=== PATIENT | female | born 1940 | race Caucasian/White ===

== ENCOUNTER 2018-11-23 14:25 | Emergency (ER) | payer OTHER ==
[~2018-11-23] VITALS: Ht 152.4 cm; Wt 104.5 kg
[2018-11-23] MEDS ORDERED: THYROID MED PO (14:31)
[2018-11-23] MEDS ORDERED: ASPI81 PO (14:31)
[2018-11-23] MEDS ORDERED: HTN MED PO (14:31)
[2018-11-23 17:18] VITALS: BP 124/72
== END 2018-11-23 17:20 | disposition home or self-care (01) ==
LOC: EMS 14:26
DX: J18.9 Pneumonia, unspecified organism (principal); I10 Essential (primary) hypertension

== ENCOUNTER 2019-10-04 09:52 | Emergency (ER) | payer OTHER ==
[~2019-10-04] VITALS: Ht 152.4 cm; Wt 78.0 kg
[~2019-10-04 09:52] MED LIST: ASPI81 PO; HTN MED PO; THYROID MED PO
[2019-10-04] MEDS ORDERED: LISI-662 PO (10:13)
[2019-10-04] MEDS ORDERED: ASPI-1182 PO (10:13)
[2019-10-04] MEDS ORDERED: LEVO88TA4 PO (10:13)
[2019-10-04] MEDS ORDERED: LIDOCAINE 5% TRANSDERMAL PATCH TD ONE (13:15)
[2019-10-04 14:03] VITALS: BP 139/81
== END 2019-10-04 14:24 | disposition home or self-care (01) ==
LOC: EMS 09:53
DX: M54.5 Low back pain (principal); R60.9 Edema, unspecified; E03.9 Hypothyroidism, unspecified; I10 Essential (primary) hypertension; Z79.899 Other long term (current) drug therapy

== ENCOUNTER 2023-10-20 14:24 | Emergency (ER) | payer OTHER ==
[~2023-10-20] VITALS: Ht 157.5 cm; Wt 97.7 kg
[~2023-10-20 14:24] MED LIST changes: +ASPI-1444 PO; -ASPI81 PO; -HTN MED PO; +LEVO88TA4 PO; +LISI-894 PO; -THYROID MED PO
[2023-10-20 14:27] VITALS: TEMP 98
[2023-10-20] MEDS ORDERED: DICL1PAT7 TD (14:41)
[2023-10-20] MEDS ORDERED: ATOR10TA69 PO (14:41)
[2023-10-20] MEDS ORDERED: LOSA-382 PO (14:41)
[2023-10-20] MEDS ORDERED: LEVO137T2 PO (14:41)
[2023-10-20] MEDS ORDERED: HYDROCODONE/ACETAMINOPHEN 5-325 MG TABLET PO ONE (15:45)
[2023-10-20 16:28] LABS: COVID AG,FIA SOURCE NASAL SWAB
[2023-10-20 16:28] LABS: BASOPHILS % (AUTO) 0.9 % (0.0-2.0); EOSINOPHILS % (AUTO) 4.1 % (1.0-6.0); HEMATOCRIT 36.1 % (36-46); LYMPHOCYTES # (AUTO) 2.4 K/uL (1.0-4.8); LYMPHOCYTES % (AUTO) 35.1 % (22.0-44.0); MEAN CORPUSCULAR HEMOGLOBIN 30.8 pg (26.0-34.0); MEAN CORPUSCULAR HGB CONC 33.2 G/dL (31.0-37.0); MEAN CORPUSCULAR VOLUME 93 fL (80-100); MONOCYTES # (AUTO) 0.6 K/uL (0.1-1.0); MONOCYTES % (AUTO) 8.6 % (2.0-9.0); NEUTROPHILS # (AUTO) 3.6 K/uL (1.8-7.7); NEUTROPHILS % (AUTO) 51.3 % (40.0-70.0); PLATELET COUNT (AUTO) 289 K/uL (150-450); RED BLOOD CELL COUNT(AUTO) 3.89 MIL/uL (4.00-5.20); RED CELL DISTRIBUTION WIDTH 13.7 % (11.5-14.5)
[2023-10-20 16:32] LABS: CREATININE 1.09 mg/dL (0.60-1.30); POTASSIUM 4.4 mmol/L (3.5-5.1)
[2023-10-20 16:38] LABS: ALBUMIN 3.3 g/dL (3.4-5.0); BILIRUBIN,TOTAL 0.4 mg/dL (0.1-1.0); TOTAL PROTEIN, SERUM 7.9 g/dL (6.4-8.2)
[2023-10-20 16:54] LABS: APPEARANCE,URINE CLEAR (CLEAR); BILIRUBIN,URINE NEGATIVE (NEGATIVE); COLOR,URINE YELLOW (YELLOW); GLUCOSE, URINE (UA) NEGATIVE (NEGATIVE); KETONES,URINE NEGATIVE (NEGATIVE); LEUKOCYTE ESTERASE ,URINE NEGATIVE (NEGATIVE); NITRATE,URINE NEGATIVE (NEGATIVE); OCCULT BLOOD,URINE NEGATIVE (NEGATIVE); PROTEIN,URINE NEGATIVE (NEGATIVE); SPECIFIC GRAVITIY, URINE 1.016 (1.003-1.030); UROBILINOGEN,URINE <=1.0 mg/dL (<=1.0)
[2023-10-20 17:13] LABS: INFLUENZA TYPE A NEGATIVE FOR TYPE A (NEGATIVE); INFLUENZA TYPE B NEGATIVE FOR TYPE B (NEGATIVE); SARS-COV2 (COVID) ANTIGEN,FIA Negative (Negative)
[2023-10-20 18:00] VITALS: BP 142/81; PULSE 84; RESP 16
[2023-10-20] MEDS ORDERED: PRED-554 PO (18:09)
[2023-10-20] MEDS ORDERED: TRAM-559 PO (18:09)
== END 2023-10-20 18:24 | disposition home or self-care (01) ==
LOC: EMS 14:24
DX: M19.90 Unspecified osteoarthritis, unspecified site (principal); I10 Essential (primary) hypertension; E03.9 Hypothyroidism, unspecified; Z98.890 Other specified postprocedural states; Z20.822 Contact with and (suspected) exposure to COVID-19
CPT/HCPCS: 80053; 81003; 85025; 87804; 99283

== ENCOUNTER 2024-11-02 09:27 | Emergency (ER) | payer OTHER ==
[~2024-11-02] VITALS: Ht 154.9 cm; Wt 97.7 kg
[~2024-11-02 09:27] MED LIST changes: +ATOR10TA69 PO; +DICL1PAT7 TD; +LEVO137T2 PO; -LEVO88TA4 PO; -LISI-894 PO; +LOSA-382 PO; +PRED-554 PO; +TRAM50TA5 PO
[2024-11-02 09:51] LABS: HEMATOCRIT 28.9 % (36-46); HEMOGLOBIN 8.7 g/dL (12.0-16.0); MEAN CORPUSCULAR HEMOGLOBIN 29.9 pg (26.0-34.0); MEAN CORPUSCULAR HGB CONC 30.1 G/dL (31.0-37.0); MEAN CORPUSCULAR VOLUME 99 fL (80-100); PLATELET COUNT (AUTO) 123 K/uL (150-450); RED BLOOD CELL COUNT(AUTO) 2.91 MIL/uL (4.00-5.20); RED CELL DISTRIBUTION WIDTH 19.1 % (11.5-14.5); WHITE BLOOD COUNT (AUTO) 23.3 K/uL (4.5-11.0)
[2024-11-02 09:59] LABS: CALCIUM, TOTAL 8.3 mg/dL (8.8-10.5); CREATININE 1.3 mg/dL (0.60-1.30); POTASSIUM 4.9 mmol/L (3.5-5.1)
[2024-11-02 10:39] VITALS: BP 0/0; PULSE 0; RESP 12; O2SAT 95
[2024-11-02 10:39] LABS: TROPONIN I-HIGH SENSITIVITY 9299 ng/L (<51)
[2024-11-02 10:40] LABS: BAND NEUTROPHILS % (MANUAL) 5 % (0-5); BASOPHILS % (MANUAL) 1 % (0-2); EOSINOPHILS % (MANUAL) 1 % (1-6); LYMPHOCYTES % (MANUAL) 63 % (22-44); METAMYELOCYTES % 5 % (0-0); MONOCYTES % (MANUAL) 2 % (2-9); MYELOCYTES % 2 % (0-0); SEGMENTED NEUTROPHILS % 21 % (40-70); TOTAL CELLS COUNTED 100
[2024-11-02 10:51] LABS: PATHOLOGY REVIEW, DIFF YES
== END 2024-11-02 13:43 ==
LOC: EMS 09:34
DX: I46.9 Cardiac arrest, cause unspecified (principal); M19.90 Unspecified osteoarthritis, unspecified site; I10 Essential (primary) hypertension; E03.9 Hypothyroidism, unspecified; E78.5 Hyperlipidemia, unspecified; Z79.82 Long term (current) use of aspirin; Z79.52 Long term (current) use of systemic steroids
CPT/HCPCS: 80048; 82550; 83880; 84484; 85025; 92950; 99285